=== PATIENT | female | born 1955 | race Caucasian/White ===

== ENCOUNTER 2017-05-22 14:05 | Day surgery (SDC) | payer OTHER ==
[2017-05-22] MEDS ORDERED: MEPERIDINE 25 MG INJ IV (16:30)
[2017-05-22] MEDS ORDERED: HYDROmorphONE (0.2 MG/ML) 10ML SYG IV ×2 (16:30)
[2017-05-22] MEDS ORDERED: DIPHENHYDRAMINE 50 MG INJ IV (16:30)
[2017-05-22] MEDS ORDERED: FENTAnyl 50 MCG/ML VIAL IV ×2 (16:30)
[2017-05-22] MEDS ORDERED: IOHEXOL 300MG/ML 30 ML BTL (16:38)
[2017-05-22] MEDS: METHYLPREDNISOLONE ACET 80 MG/ML 1 ML (16:47)
[2017-05-22] MEDS: BUPIVACAINE 0.25% (MPF) 30 ML INJ (16:47)
== END 2017-05-22 17:22 | disposition home or self-care (01) ==
LOC: SDS 14:05
DX: M16.12 Unilateral primary osteoarthritis, left hip (principal); E78.1 Pure hyperglyceridemia
CPT/HCPCS: 20610; 73530; 82962